=== PATIENT | male | born 1965 | race African-American/Black ===

== ENCOUNTER 2019-01-08 11:44 | Day surgery (SDC) | payer OTHER ==
[~2019-01-08] VITALS: Ht 180.3 cm; Wt 143.9 kg
[~2019-01-08 11:44] MED LIST: AMLODIPINE; ASPIRIN; ATORVASTATIN; CYCLOBENZAPRINE; D 5000; HEMP OIL; HYZAAR; MELOXICAM; TRAMADOL
[2019-01-08 14:16] VITALS: BP 139/70; PULSE 68; RESP 19
[2019-01-08] MEDS ORDERED: PROPOFOL 200 MG INJ ONE (14:45)
[2019-01-08] MEDS ORDERED: PROPOFOL 20 ML ONE (14:47)
[2019-01-08] MEDS ORDERED: FENTAnyl 50 MCG/ML VIAL ONE (14:48)
[2019-01-08 16:52] VITALS: BP 140/70; RESP 17
== END 2019-01-08 15:56 | disposition home or self-care (01) ==
LOC: GIL 11:44
PROVIDERS: ATTEND Internal Medicine Gastroenterology
DX: Z12.11 Encounter for screening for malignant neoplasm of colon (principal); D12.5 Benign neoplasm of sigmoid colon; K64.8 Other hemorrhoids; D12.2 Benign neoplasm of ascending colon; D12.0 Benign neoplasm of cecum; I10 Essential (primary) hypertension
CPT/HCPCS: 88305; J3010